=== PATIENT | female | born 1990 | race African-American/Black ===

== ENCOUNTER 2017-02-27 12:42 | Emergency (ER) | payer OTHER ==
[~2017-02-27] VITALS: Ht 172.7 cm; Wt 65.0 kg
[~2017-02-27 12:42] MED LIST: DICL75 PO; MMW SWISH-SWAL
[2017-02-27 12:44] VITALS: BP 150/83; PULSE 71; RESP 18; TEMP 98.2; O2SAT 98
[2017-02-27 13:01] VITALS: BP 164/95; PULSE 61; RESP 16; O2SAT 100
--- NOTE | 2017-02-27 13:17 | PD ---
HPI Chief Complaint: Chest Pain Time Seen by Provider: 12:57 Travel History International Travel<30 days: No Contact w/Intl Traveler<30days: No Traveled to known affect area: No History of Present Illness HPI Healthy 26-year-old female here with complaint of chest pain. Patient states that she awoke this morning with a sharp chest pain. This is in the sternal region and radiates into the back. It is worse with movement, cough, inspiration. She does not feel however short of breath and denies any recent illness. No recent travel, immobilization, history of DVT or PE, no exogenous hormone use. Patient denies any early onset cardiac disease within self or family. 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 PFSH Past Medical History Medical History: Denies Significant Hx Cardiovascular Problems: Yes (HEART MURMUR) Diminished Hearing: No Immunizations Current: Yes ?: Not LMP: 02/09/17 : 2 Para: 1 Past Surgical History Section: Yes (x 1) Social History Alcohol Use: Yes (occ) Tobacco Use: Yes (<ppd) Substance Use: Yes (marijuana) Allergies-Medications (Allergen,Severity, Reaction): Coded Allergies: Adhesives (Verified Allergy, Mild, SKIN IRRITATION, 02/27/17) Reported Meds & Prescriptions Reported Meds & Active Scripts Active No Active Prescriptions or Reported Medications Review of Systems Except as stated in HPI: all other systems reviewed are Neg Physical Exam Narrative GENERAL: Well-appearing female in no acute distress SKIN: Focused skin assessment warm/dry. HEAD: Normocephalic. EYES: No scleral icterus. No injection or drainage. ENT: Mucous membranes pink and moist. NECK: Supple CARDIOVASCULAR: Regular rate and rhythm. No murmur appreciated. Reproducible tenderness to palpation of the chest wall along the bilateral sternal margin. RESPIRATORY: No accessory muscle use. Clear to auscultation. Breath sounds equal bilaterally. GASTROINTESTINAL: Abdomen soft, non-tender, nondistended. MUSCULOSKELETAL: No obvious deformities. No edema. NEUROLOGICAL: Awake and alert. Normal speech. PSYCHIATRIC: Appropriate mood and affect; insight and judgment normal. Data Data Last Documented VS Vital Signs Date Time Temp Pulse Resp B/P Pulse Ox O2 Delivery O2 Flow Rate FiO2 02/27/17 13:01 61 16 164/95 100 Room Air 02/27/17 12:44 98.2 Orders Electrocardiogram (02/27/17 ) MDM Medical Decision Making Medical Screen Exam Complete: Yes Emergency Medical Condition: Yes Medical Record Reviewed: Yes Differential Diagnosis 26-year-old female here with sharp chest pain worse with movement, inspiration. Exam is reproducible pain, most consistent with costochondritis. Less likely PE, ACS, aortic dissection, pneumothorax. Narrative Course Twelve-lead EKG shows sinus bradycardia, rate [address] or T-wave abnormalities and normal intervals. Patient does have J-point elevation. My strong suspicion is for costochondritis. Patient rules out for PE based on PERC criteria. Reassured and encouraged to use NSAIDs for home. Diagnosis Primary Impression: Costochondritis, acute Referrals: [facility] as needed Additional Instructions: Tylenol, ibuprofen, Aleve as needed for pain. Med/Other Pt SpecificInfo: No Change to Meds Scripts No Active Prescriptions or Reported Meds Disposition: 01 DISCHARGE HOME Condition: Stable Marii Howe MD Feb 27, 2017 13:17
[2017-02-27 13:32] VITALS: BP 134/78
--- NOTE | 2017-02-28 18:16 | EKG ---
Date Performed: 02/27/2017 Time Performed: 12:56:17 PTAGE: 26 years EKG: SINUS BRADYCARDIA POSSIBLE RIGHT VENTRICULAR CONDUCTION DELAY BORDERLINE ECG NO PREVIOUS TRACING DOCTOR: Sean Cummins Interpretating Date/Time 02/28/2017 18:12:56
== END 2017-02-27 13:55 | disposition home or self-care (01) ==
LOC: NEPD 12:42
DX: M94.0 Chondrocostal junction syndrome [Tietze] (principal)
CPT/HCPCS: 93005